=== PATIENT | female | born 1995 | race Caucasian/White ===

== ENCOUNTER 2020-07-30 14:32 | Emergency (ER) | payer BC ==
[~2020-07-30] VITALS: Ht 170.2 cm; Wt 68.2 kg
[2020-07-30 14:39] VITALS: BP 104/68; TEMP 98.1
[2020-07-30] MEDS ORDERED: ADDERALL5 MG (15:32)
[2020-07-30] MEDS ORDERED: FLEXERIL 1010 MG/TAB PO ×2 (15:32→16:47)
[2020-07-30] MEDS ORDERED: PRILOSEC 20MG20 MG (15:32)
[2020-07-30 16:04] LABS: COLLECTION METHOD CLEAN CATCH
[2020-07-30 16:18] LABS: MUCOUS Present /lpf; PH 7 (5-8); SQUAMOUS EPITHELIAL 0-2 /hpf; URINE APPEARANCE Clear; URINE BACTERIA Rare /hpf; URINE BILIRUBIN Negative (NEGATIVE); URINE BLOOD Negative (NEGATIVE); URINE COLOR Yellow; URINE GLUCOSE Negative (NEGATIVE); URINE KETONE Negative (NEGATIVE); URINE LEUKOCYTE ESTERASE Negative (NEGATIVE); URINE NITRATE Negative (NEGATIVE); URINE PROTEIN(semi-quant) Negative (NEGATIVE); URINE RBC 0-2 /hpf; URINE UROBILINOGEN Negative (NEGATIVE)
[2020-07-30 16:52] VITALS: PULSE 84
== END 2020-07-30 16:52 | disposition home or self-care (01) ==
LOC: COL.ER 14:32
PROVIDERS: Family Medicine
DX: M54.5 Low back pain (principal); Z32.02 Encounter for pregnancy test, result negative
CPT/HCPCS: J1885; J2360